=== PATIENT | male | born 1975 | race African-American/Black ===

== ENCOUNTER 2017-07-04 09:30 | Emergency (ER) | payer OTHER ==
[~2017-07-04] VITALS: Ht 180.3 cm; Wt 120.0 kg
[2017-07-04 09:40] VITALS: BP 152/98; PULSE 78; RESP 20; TEMP 98.1; O2SAT 98
--- NOTE | 2017-07-04 09:57 | PD ---
HPI Chief Complaint: Pain: Acute or Chronic Time Seen by Provider: 09:46 Travel History International Travel<30 days: No Contact w/Intl Traveler<30days: No Traveled to known affect area: No History of Present Illness HPI The patient is a 41-year-old -[place] male who presents to the emergency department for left-sided chest pain. The patient developed left- sided chest pain 1 week ago after coughing and sneezing. The pain is located over the lateral left inferior aspect of the chest wall. The pain is described as sharp, worse with coughing, inspiration, lying supine, and movement. The patient denies any previous history of pneumothorax, hemothorax, rib fracture, or chest trauma. Patient has been taking ibuprofen, however, continues to have symptoms. He does complain of mild shortness of breath secondary to the pain. He denies any nausea, vomiting, left upper quadrant abdominal pain. Symptoms are moderate. PFSH Past Medical History Medical History: Denies Significant Hx Diminished Hearing: No Medical other: Yes (umbicial hernia ) ?: Not Past Surgical History Surgical History: No Previous Surgery Social History Alcohol Use: Yes (rarely ) Tobacco Use: Yes (1.2- 1ppd) Substance Use: No Allergies-Medications (Allergen,Severity, Reaction): Coded Allergies: No Known Allergies (Unverified , 07/04/17) Reported Meds & Prescriptions Reported Meds & Active Scripts Active No Active Prescriptions or Reported Medications Review of Systems Except as stated in HPI: all other systems reviewed are Neg General / Constitutional: No: Fever Cardiovascular: Positive: Chest Pain or Discomfort Respiratory: Positive: Shortness of Breath, Pleuritic Pain Gastrointestinal: Positive: Other (History of umbilical hernia), No: Nausea, Vomiting, Abdominal Pain Skin: No Rash Physical Exam Narrative GENERAL: Awake, alert, pleasant 41-year-old male who appears his stated age and is in no acute respiratory distress. SKIN: Focused skin assessment warm/dry. HEAD: Atraumatic. Normocephalic. EYES: No injection or drainage. ENT: No nasal bleeding or discharge. Mucous membranes pink and moist. NECK: Trachea midline. No JVD. CARDIOVASCULAR: Regular rate and rhythm. No murmur appreciated. Tender palpation of the lateral left chest wall. RESPIRATORY: No accessory muscle use. Clear to auscultation. Breath sounds equal bilaterally. GASTROINTESTINAL: Abdomen soft, no tenderness left upper quadrant. Small reducible umbilical hernia. MUSCULOSKELETAL: No obvious deformities. No clubbing. No cyanosis. No edema. NEUROLOGICAL: Awake and alert. No obvious cranial nerve deficits. Motor grossly within normal limits. Normal speech. PSYCHIATRIC: Appropriate mood and affect; insight and judgment normal. Data Data Last Documented VS Vital Signs Date Time Temp Pulse Resp B/P (MAP) Pulse Ox O2 Delivery O2 Flow Rate FiO2 07/04/17 09:40 98.1 78 20 152/98 (116) 98 Orders Orders Chest, Expiration Only (07/04/17 ) Ct Thorax/ Chest Wo Iv Contras (07/04/17 ) Ed Discharge Order (07/04/17 12:05) MDM Medical Decision Making Medical Screen Exam Complete: Yes Emergency Medical Condition: Yes Medical Record Reviewed: Yes Interpretation(s) Last Impressions Chest X-Ray 07/04/17 0000 Signed Impressions: Service Date/Time: Tuesday, July 04, 2017 09:55 - CONCLUSION: No acute disease. No pneumothorax. Marshall Ridley MD CT of the thorax is unremarkable Differential Diagnosis Differential diagnosis includes pneumothorax, rib fracture, pleurisy, neuralgia. Narrative Course Expiratory chest x-ray was obtained. Chest x-ray was negative. CT of the thorax was obtained, no evidence of pneumothorax. The patient be discharged home on ibuprofen. He is advised to use [id number] topical medications as needed. Follow-up with a primary physician. He will be provided a copy of his CT results and x-ray results at discharge. Diagnosis Primary Impression: Left-sided chest wall pain Patient Instructions: General Instructions Additional Instructions: Please provide the patient a copy of his x-ray results and CT results at discharge. Follow-up with a primary physician. Return if symptoms worsen or progress. Medications as directed. Med/Other Pt SpecificInfo: Prescription(s) given Scripts Ibuprofen (Ibuprofen) 600 Mg Tab 600 MG PO Q6H Y for Pain/Inflammation, #20 TAB 0 Refills Prov: Omer Alvarez MD 07/04/17 Disposition: 01 DISCHARGE HOME Condition: Stable Omer Alvarez MD Jul 04, 2017 09:57
--- NOTE | 2017-07-04 10:19 | RADRPT ---
EXAM DATE/TIME: 07/04/2017 09:55 [facility] COMPARISON: No previous studies available for comparison. INDICATIONS : Left sided chest pain after coughing. Evaluate for pneumothorax. MEDICAL HISTORY : None. SURGICAL HISTORY : None. ENCOUNTER: Initial ACUITY: 2 days PAIN SCORE: 10/10 LOCATION: Bilateral chest FINDINGS: A single frontal expiratory view of the chest was performed. The lungs are symmetrically aerated and clear. No evidence of pneumothorax. Mediastinal structures are in the midline. The cardio-mediastinal contours and bronchopulmonary markings are unremarkable for an expiratory exam . Osseous structures are intact. CONCLUSION: No acute disease. No pneumothorax. Marshall Ridley MD on July 04, 2017 at 10:17 Board Certified Radiologist. This report was verified electronically.
--- NOTE | 2017-07-04 11:44 | RADRPT ---
EXAM DATE/TIME: 07/04/2017 11:10 [facility] COMPARISON: No previous studies available for comparison. INDICATIONS : Left side chest pain,shortness of breath and cough RADIATION DOSE: 18.49 CTDIvol (mGy) MEDICAL HISTORY : Hernia, umbilical. SURGICAL HISTORY : None. ENCOUNTER: Initial ACUITY: 1 day PAIN SCALE: 3/10 LOCATION: chest TECHNIQUE: Volumetric scanning of the chest was performed. Using automated exposure control and adjustment of t he mA and/or kV according to patient size, radiation dose was kept as low as reasonably achievable to obtain optimal diagnostic quality images. DICOM format image data is available electronically for r eview and comparison. Follow-up recommendations for detected pulmonary nodules are based at a minimum on nodule size and pa tient risk factors according to Fleischner Society Guidelines. FINDINGS: LUNGS: There is no consolidation or pneumothorax. No concerning pulmonary nodule is visualized. PLEURAE: There is no pleural thickening or pleural effusion. MEDIASTINUM: The heart and great vessels demonstrate no acute abnormality. There is no mediastinal or hilar lymph adenopathy. AXILLAE: Within normal limits. No lymphadenopathy. MUSCULOSKELETAL: Within normal limits for patient age. MISCELLANEOUS: The visualized upper abdominal organs demonstrate no acute abnormality. CONCLUSION: Unremarkable CT chest. Marshall Ridley MD on July 04, 2017 at 11:37 Board Certified Radiologist. This report was verified electronically.
[2017-07-04] MEDS ORDERED: IBUP-232 PO (12:07)
[2017-07-04 12:27] VITALS: BP 147/72; PULSE 64; RESP 18; O2SAT 98
== END 2017-07-04 12:26 | disposition home or self-care (01) ==
LOC: EDBD 09:30 → NEPD 09:30
DX: R07.89 Other chest pain (principal); F17.210 Nicotine dependence, cigarettes, uncomplicated
CPT/HCPCS: 71045; 71250; 99284